=== PATIENT | female | born 1995 | race Caucasian/White ===

== ENCOUNTER 2018-10-31 22:37 | Emergency (ER) | payer SELFPAY ==
[~2018-10-31] VITALS: Ht 160 cm; Wt 65.9 kg
[2018-11-01] MEDS ORDERED: LEVOFLOXACIN 250 MG TABLET PO ONE (01:15)
[2018-11-01] MEDS ORDERED: PERTUSS(ACELL),DIPH,TET VAC/PF 0.5 ML VIAL IM ONE (01:15)
[2018-11-01 01:20] VITALS: BP 125/68
== END 2018-11-01 01:45 | disposition home or self-care (01) ==
LOC: EMS 22:38
DX: S91.301A Unspecified open wound, right foot, initial encounter (principal); X58.XXXA Exposure to other specified factors, initial encounter; Y93.89 Activity, other specified; Y92.89 Other specified places as the place of occurrence of the external cause; Y99.8 Other external cause status
CPT/HCPCS: 90471; 90715; 99406

== ENCOUNTER 2021-11-01 15:19 | Emergency (ER) | payer OTHER ==
[~2021-11-01] VITALS: Ht 160 cm; Wt 85.0 kg
[2021-11-01 16:44] LABS: COVID AG,FIA SOURCE NASOPHARYNGEAL
[2021-11-01] MEDS ORDERED: NEOMYCIN/POLYMYXIN B/HYDROCORT 10 ML OTIC SUSPENSION AS ONE (17:30)
[2021-11-01 17:57] VITALS: BP 118/85
== END 2021-11-01 17:59 | disposition home or self-care (01) ==
LOC: EMS 15:19
DX: H60.92 Unspecified otitis externa, left ear (principal); J20.9 Acute bronchitis, unspecified; Z20.822 Contact with and (suspected) exposure to COVID-19
CPT/HCPCS: 87430; 99283